=== PATIENT | female | born 1955 ===

== ENCOUNTER 2018-06-11 13:18 | Outpatient (CLI) | payer MEDICAID | END 2018-06-11 13:19 | disposition home or self-care (01) | LOC: C.RADIC 13:18 ==

== ENCOUNTER 2018-06-14 12:27 | Outpatient (CLI) | payer MEDICAID | END 2018-06-14 12:28 | disposition home or self-care (01) | LOC: C.DEXAIC 12:27 | DX: M81.0 Age-related osteoporosis without current pathological fracture (principal) ==